=== PATIENT | female | born 1965 | race Caucasian/White ===

== ENCOUNTER 2022-08-08 06:28 | Day surgery (SDC) | payer SELFPAY ==
[2022-08-08 06:58] VITALS: BP 134/85; PULSE 78; RESP 16; TEMP 36.9; O2SAT 100; BMI 27.5
[2022-08-08] MEDS: Lactated Ringers 1,000 ML 15 ML IV (07:02)
--- NOTE | 2022-08-08 07:12 | H&P.OPEN ---
HPI - General HPI Narrative JESSEE ZACARIAS, is a 57 F who presents for as colonoscopy due to history of colon polyps as well as family history. Patient last colonoscopy was in November 2017 she did have tubular adenoma at that time. Patient's father has had colon/liver/pancreatic cancer?diagnosed initially in his 50s had surgery and then patient did have a recurrence in his 60s and had surgery again. Patient has bowel movements daily denies any blood. Patient denies any chronic abdominal pain/nausea/vomiting/reflux. [facility] Medical History (Updated 08/08/22 @ 07:[address] Violetta Winters MD) Cervical lesion Easy bruising Family history of colon cancer History of colon polyps Low iron Non-smoker Post-menopausal Wears partial dentures Home Medications calcium 600 mg capsule 600 mg PO DAILY 08/03/22 [History Last Taken Unknown] ferrous sulfate 325 mg (65 mg iron) tablet (iron) 325 mg PO DAILY 08/03/22 [History Last Taken Unknown] lactobacillus combination no.4 3 billion cell capsule (Probiotic) 3,000 mmu cells PO DAILY 08/03/22 [History Last Taken Unknown] omega 4-cao-vas-fish oil 1,000 mg (120 mg-180 mg) capsule (Fish Oil) 1 cap PO DAILY 08/03/22 [History Last Taken Unknown] Allergy/AdvReac Type Severity Reaction Status Date / Time No Known Allergies Allergy Verified 08/08/22 06:58 Family History (Updated 06/15/22 @ 08:19 by Anum Hernandez) Father Colon cancer Liver cancer Pancreatic cancer Grandfather Pancreatic cancer Surgical History (Updated 06/15/22 @ 08:18 by Anum Hernandez) History of colonoscopy Social History (Updated 06/15/22 @ 08:21 by Anum Hernandez) household members: spouse current occupational status: employed current occupation: [employer] Smoking Status: Never smoker substance use type: does not use caffeine: Yes Past Medical/Surgical History Planned Operation Planned Operative Procedure/s: CSCOPE OA Previous Hospitalizations/Surgeries HX Hospitalizations: No Any Problems With Anesthesia: No You/Your Family Experience Fever (Hyperthermia) With Anes: No Cholinesterase deficiency: No Cardiovascular Hx Hypertension: No Respiratory Hx Sleep Apnea: No Hx Respiratory Tract Infection/Cold (presently): No Do You Snore Loudly (louder than talking or can be heard): No Do You Often Feel Tired/ Fatigued/ Sleepy ing Daytime?: No Has Anyone Observed You Stop Breathing During Sleep?: No Result (for STOP score): Negative Smoking Status: Never smoker Neurological Does patient have nerve stimulator: No Reproduction : No Miscellaneous Recent Exposure to Contagious Disease: No Allergies No Known Allergies Allergy (Verified 08/08/22 06:58) Discharge Is Pt Admitted From a Fdc, or a Senior Living: No After D/C, Where Do you Plan to Go: Return Home Vital Signs Vital Signs Vital Signs: 08/08/22 06:58 08/08/22 06:58 Temperature 98.4 F Temperature Source Temporal Pulse Rate 78 Respiratory Rate 16 Respiratory Pattern Normal Blood Pressure 134/85 H Blood Pressure Mean 101 Blood Pressure Source Monitor Blood Pressure Position Sitting Blood Pressure Location Left Arm Pulse Ox 100 Oxygen Delivery Method Room Air Weight Weight: 165 lb 5.547 oz Body Mass Index (BMI) 27.5 Physical Exam Const alert, oriented x3 and no apparent distress HEENT normocephalic and head/scalp atraumatic Resp normal respiratory effort Cardio regular rate GI soft to palpation and non-tender; Negative for non-distended Palpation: Negative for guarding Extremity no clubbing, cyanosis or edema Neuro CN's II-XII intact bilaterally Psych mental status grossly normal Assessment & Plan Assessment/Plan (1) Family history of colon cancer: (2) History of colon polyps: Surgery Risks - Colonoscopy Risks Include but are not Limited To: Risks include but are not limited to: Bleeding, perforation requiring further surgery, inability to complete colonoscopy requiring barium enema.
[2022-08-08 07:55] VITALS: BP 106/72; BP 134/85; PULSE 72; RESP 14; TEMP 36.5; O2SAT 100
--- NOTE | 2022-08-08 07:58 | OP.COLON_ITS ---
Patient Name: Lucie Daniels Procedure Date: 08/08/2022 7:27 AM Date of : 1965 Age: 57 Procedure: Colonoscopy Indications: High risk colon cancer surveillance: Personal history of colonic polyps, Family history of colon cancer in a first-degree relative Providers: Violetta Winters MD Medicines: Monitored Anesthesia Care Patient Profile: This is a 57 year old female. Last Colonoscopy: November 2017. Complications: No immediate complications. Procedure: Pre-Anesthesia Assessment: - Prior to the procedure, a History and Physical was performed, and patient medications and allergies were reviewed. The patient's tolerance of previous anesthesia was also reviewed. The risks and benefits of the procedure and the sedation options and risks were discussed with the patient. All questions were answered, and informed consent was obtained. Prior Anticoagulants: The patient has taken no previous anticoagulant or antiplatelet agents. ASA Grade Assessment: Per anesthesia. After reviewing the risks and benefits, the patient was deemed in satisfactory condition to undergo the procedure. After I obtained informed consent, the scope was passed under direct vision. Throughout the procedure, the patient's blood pressure, pulse, and oxygen saturations were monitored continuously. The colonoscope was introduced through the anus and advanced to the terminal ileum. The colonoscopy was performed without difficulty. The patient tolerated the procedure well. The quality of the bowel preparation was good. Scope In: 7:33:21 AM Scope Withdrawal Time 0 hours 8 minutes 23 seconds Scope Out: 7:47:34 AM Total Procedure Duration Time 0 hours 14 minutes 13 seconds Findings: Hemorrhoids were found on perianal exam. Non-bleeding external and internal hemorrhoids were found. The hemorrhoids were Grade I (internal hemorrhoids that do not prolapse). Previous area of tattoo at about 18 cm- no evidence of polyps The entire examined colon appeared normal. Impression: - Hemorrhoids found on perianal exam. - Non-bleeding external and internal hemorrhoids. - The entire examined colon is normal. - No specimens collected. Recommendation: - Discharge patient to home. - Resume previous diet. - Continue present medications. - Repeat colonoscopy in 5 years for screening purposes. Procedure Code(s): --- Professional --- 78468, PT, Colonoscopy, flexible; diagnostic, including collection of specimen(s) by brushing or washing, when performed (separate procedure) Diagnosis Code(s): --- Professional --- Z86.010, Personal history of colonic polyps K64.0, First degree hemorrhoids Z80.0, Family history of malignant neoplasm of digestive organs CPT copyright 2017 [employer]. All rights reserved. The codes documented in this report are preliminary and upon occupational analyst review may be revised to meet current compliance requirements. MD Violetta Chiang MD 08/08/2022 7:58:41 AM This report has been signed electronically. Number of Addenda: 0 Note Initiated On: 08/08/2022 7:27 AM
--- NOTE | 2022-08-08 07:59 | OP.CCLET_ITS ---
08/08/2022 Natalie Roland Re : Colonoscopy procedure for Lucie Roland This procedure was performed on Monday, August 08, 2022. My impressions and recommendations are as follows: Impressions : - Hemorrhoids found on perianal exam. - Non-bleeding external and internal hemorrhoids. - The entire examined colon is normal. - No specimens collected. Recommendations : - Discharge patient to home. - Resume previous diet. - Continue present medications. - Repeat colonoscopy in 5 years for screening purposes. My findings are described in the full procedure note, which is enclosed. If I can be of further assistance, please feel free to contact me at Doctor phone number(s): , Work: . Sincerely, MD Violetta Chiang MD 08/08/2022 7:58:41 AM This report has been signed electronically.
[2022-08-08 08:00] VITALS: BP 109/73; BP 134/85; PULSE 72; RESP 16; O2SAT 99
[2022-08-08 08:05] VITALS: BP 110/82; BP 134/85; PULSE 75; RESP 16; O2SAT 99
[2022-08-08 08:10] VITALS: BP 114/70; BP 134/85; PULSE 72; RESP 16; TEMP 36.8; O2SAT 99
[2022-08-08 08:39] VITALS: BP 134/85
== END 2022-08-08 09:15 | disposition home or self-care (01) ==
LOC: EN 06:36 → AC 06:36
PROVIDERS: PCP Physician Assistant; Referring Provider Physician Assistant; Visit Provider Surgery
PROC: 0DJD8ZZ Inspection of Lower Intestinal Tract, Via Natural or Artificial Opening Endoscopic (ICD-10-PCS; CPT 45378; principal; 2022-08-08 07:25)
DX: Z12.11 Encounter for screening for malignant neoplasm of colon (principal); K64.0 First degree hemorrhoids; K64.4 Residual hemorrhoidal skin tags; Z80.0 Family history of malignant neoplasm of digestive organs; Z86.010 Personal history of colon polyps; Z78.0 Asymptomatic menopausal state
CPT/HCPCS: 45378; J7120

== ENCOUNTER → 2024-03-23 | Outpatient (CLI) | payer SELFPAY ==
--- NOTE | 2024-03-23 10:42 | ASPS_PTH ---
PATIENT: JESSEE ZACARIAS LOC: [facility] U#:[id number] AGE/SX: 58/F ROOM: RE03/23/[address]: Dr. Evan Bullard MD : 1965 BED: DIS: 03/23/2024 SPEC #: [id number] RECD: 03/23/24 13:19 STATUS: DAVE SHELBY #: [id number] RYLEY: 03/23/24 10:[address]: Evan Bullard DEPT: CYTOLOGY RECD BY: Flaca Shaw ENTERED: 03/23/24 13:33 SP TYPE: ASPIRATION OTHR DR: MARCELLA Kiser Tissues: Left breast, NOS Procedures: Special Stain Group II Cytology Other HEADER OPERATION: Fine needle aspiration left breast cyst PRE-OP DIAGNOSIS: Left breast cyst TISSUE SUBMITTED: Left breast cyst DIAGNOSIS CYTOLOGY Fine needle aspiration, left breast cyst (smears): Consistent with benign cyst contents. AM/mr 03/24/2024 CYTOLOGY STUDY Slides are reviewed. CYTOLOGY GROSS Received are 4 smears labeled with the patient's name and designated per the requisition as Left breast cyst. Submitted for staining. Mr 03/23/2024 TC:5 CPT: 11244
== END | disposition home or self-care (01) ==
PROVIDERS: PCP Physician Assistant; Referring Provider Surgery; Visit Provider Surgery
DX: N60.02 Solitary cyst of left breast (principal)
CPT/HCPCS: 88161; 88313

== ENCOUNTER → 2024-03-30 | Outpatient (CLI) | payer SELFPAY ==
--- NOTE | 2024-03-30 09:26 | BI_ITS ---
MAMMOGRAPHY - UNILATERAL DIAGNOSTIC: LEFT BREAST REASON FOR EXAM: Female, 58 years old. Follow-up to ultrasound-guided breast biopsy. PERTINENT HISTORY: Retroareolar nodule. TECHNIQUE: Digital unilateral breast petar (3D mammographic acquisition) in the CC and MLO projections. 2-D mediolateral oblique (MLO) and craniocaudad (CC) views of both breasts were obtained. CAD: Full Field Digital Mammography with Computer Added Detection was performed. COMPARISON: Comparison is made with prior outside examination dated March 11, 2024. FINDINGS: Breast Composition: There are scattered areas of fibroglandular density. A tissue clip marker is seen in the retroareolar region of the left breast. The clip is adjacent to a 4.1 mm nodule. No other significant abnormalities are identified. BI/DIAG MAMM W/CAD, UNILAT IMPRESSION: The biopsy clip is adjacent to a 4.1 mm nodule in the retroareolar region of the left breast. ASSESSMENT CATEGORY: BIRADS Category 2: Benign. A letter regarding these results will be sent to the patient by the facility within 30 days. Approximately 10% of breast cancers are not detected by mammography. A normal mammogram should not delay biopsy of a clinically suspicious abnormality. Electronically Signed: Guillaume Ledezma MD at 12:18 EDT ,
--- NOTE | 2024-03-30 09:26 | US_ITS ---
STUDY: ULTRASOUND BREAST - LEFT REASON FOR EXAM: Female, 58 years old. Status post aspiration and clip placement. TECHNIQUE: Axial and longitudinal images of the LEFT breast were performed with a high resolution ultrasound transducer. # OF IMAGES: 22 COMPARISON: Comparison is made with prior mammogram done earlier today. FINDINGS: LEFT Breast: There is a 7 mm x 7 mm x 5 mm hypoechoic slightly irregular nodular density at the 2:00 position breast at 2 cm from the nipple. A tissue clip marker is seen adjacent to the nodule. Blood flow is seen along the periphery of the nodule. Mild ductal dilatation. US/Breast Limited Unilateral IMPRESSION: 7 mm x 7 mm x 5 mm hypoechoic slightly irregular nodule at the 2:00 position of the breast at 2 cm from the nipple. A tissue clip marker is seen adjacent to the nodule. ASSESSMENT CATEGORY: BIRADS Category 0: Incomplete. Need additional imaging evaluation. A letter regarding these results will be sent to the patient by the facility within 30 days. Electronically Signed: Guillaume Ledezma MD at 7:39 EDT ,
== END | disposition home or self-care (01) ==
PROVIDERS: PCP Physician Assistant; Referring Provider Surgery; Visit Provider Surgery
DX: R92.8 Other abnormal and inconclusive findings on diagnostic imaging of breast (principal)
CPT/HCPCS: 76642; 77061; 77065; G0279

== ENCOUNTER 2024-04-01 07:44 | Day surgery (SDC) | payer SELFPAY ==
[2024-04-01] VITALS (11 sets, daily range): BP systolic 113–133; BP diastolic 67–76; PULSE 71–82; RESP 16–18; TEMP 36.2–36.9; O2SAT 94–100; BMI 26.7
[2024-04-01] MEDS: Lactated Ringers 1,000 ML 15 ML IV (08:17)
--- NOTE | 2024-04-01 08:49 | PCM.HP.BLA ---
History and Physical Date of Admission: 04/01/24 Date of Service: 03/23/24 MR#: [id number] Acct: [id number] Name: JESSEE ZACARIAS Rep #: [id number] : 1965 Provider: Dr. Evan Bullard MD Age/Sex: 58/F Location: [facility] Status: Signed Intake Vital Signs 08/08/2206:58 03/23/2410:10 Height 5 ft 5 in 5 ft 5 in Weight: 164 lb BMI 27.3 BP 137/86 H Blood Pressure Location Rt brachial Position Sitting Respiration 17 Pulse 79 Pulse Source Monitor Pulse Oximetry (%) 98 Oxygen Delivery Method room air Intake Visit Reasons: BIRADS 4 Chief Complaint: birads 4 Is patient in pain?: No Allergies No Known Allergies Allergy (Verified 03/23/24 10:12) Medications ?Medication ?Instructions ?Recorded ?Confirmed ?Type calcium 600 mg capsule 600 mg PO DAILY 08/03/22 03/23/24 History ferrous sulfate 325 mg (65 mg 325 mg PO DAILY 08/03/22 03/23/24 History iron) tablet (iron) lactobacillus combination no.4 3 3,000 mmu cells PO DAILY 08/03/22 03/23/24 History billion cell capsule (Probiotic) magnesium 200 mg tablet 200 mg PO DAILY 03/23/24 03/23/24 History medium chain triglycerides 5.84 kcal PO 03/23/24 03/23/24 History kcal/gram oral powder PFSH Medical History (Updated 03/23/24 @ 15:[address] Evan Bullard MD) Wears partial dentures Post-menopausal Low iron Easy bruising Non-smoker Cervical lesion History of colon polyps Family history of colon cancer Surgical History History of colonoscopy Family History (Updated 03/23/24 @ 10:10 by Linda Miranda) Father Colon cancer Liver cancer Pancreatic cancer Diabetes HypertensionGrandfather Pancreatic cancer Social History (Updated 03/23/24 @ 10:10 by Linda Miranda) household members: spouse current occupational status: employed current occupation: [employer] Smoking Status: Never smoker alcohol intake: current alcohol intake frequency: holidays/special occasions only substance use type: does not use caffeine: Yes HPI HPI HPI: Patient is a 58-year-old female who presents for recent suspicious result from routine screening mammogram (and subsequent ultrasound) of the left breast. They are referred from . [facility]. Based on mammographic imaging criteria this was given a BI-RADS 4. Patient has no prior history of breast pathology. She has no history of prior breast biopsy. She underwent menarche at the age of 14-15. She has had 4 pregnancies and 4 live births. Breast-feeding was used. Patient has no first-degree relatives with breast cancer. There is no tenderness with the present finding. There is no nipple discharge associated with this finding. The patient has no history of hormone replacement therapy. There is a history of trauma potentially to the affected breast as patient recalls falling off a ladder approximately 2 months ago. However, given the remoteness of this injury she is unable to recall the specific region that was impacted with this trauma. ROS General General: No weight change, appetite, fatigue, colon cancer, breast cancer or weakness HEENT HEENT: No difficulty swallowing, eye injury, eye surgery, swollen glands or hoarseness Endo Endocrine: No thyroid disease, diabetes mellitus, thyroid cancer, Hair loss, heat intolerance or cold intolerance Skin Skin: No rash or changing moles Breast Breast: Yes abnormal mammogram and abnormal US; No left breast lump, right breast lump, nipple discharge, breast pain or breast enlargement Musc Musculoskeletal: No back problems, arthritis, rheumatoid arthritis, gout or joint pain Cardio Cardiovascular: No murmur, pacemaker, heart disease, atrial fibrillation, high blood pressure, heart attack, heart stent, palpitations, shortness of breat with exertion or chest pain Psych Psychiatric: No depression, anxiety or hearing voices Resp Respiratory: No shortness of breath, No sleep apnea, No cough, No COPD, No asthma, No emphysema and No wheezing Gastro Gastrointestinal: No abdominal pain, No nausea or vomiting, No diarrhea, No constipation, No blood in stool, No acid reflux, Yes hemorrhoids, No ulcers, No gallbladder problem and No black,tarry stools Michael Hematologic: No blood thinners, No blood disorders, No bleeding, No anemia and No blood clots Neuro Neurologic: No system reviewed and no additional complaints, except as documented, No as per HPI, No abnormal gait, No abnormal hearing, No abnormal movements, No abnormal speech, No behavioral changes, No burning sensations, No confusion, No convulsions, No disequilibrium, No dizziness, No localized weakness, No frequent falls, No headache(s), No lack of coordination, No loss of vision, No memory loss, No numbness, No other visual disturbances, No radicular pain, No restless legs, No sensory deficit, No syncope, No tingling, No tremor(s), No weakness and No other Exam Const General: cooperative, comfortable and no acute distress Chest Other: Bilateral breasts are inspected and there is an apparent discrepancy in their size with the right slightly smaller than the left. There is also a slightly increased degree of nipple ptosis on the right when compared to the left. In the right breast superiorly, inferiorly, and laterally there is a degree of firmer lobular architecture to the breast with palpation. This area also corresponds to an area of increased tenderness with this exam. On the left, similarly, there is tenderness superiorly, inferiorly, and laterally. These areas of increased tenderness are somewhat wider on the left. Initially with ultrasound examination I was unable to identify the area of concern, but with reinspection adjacent to the areolar border identified the area of interest which measured 6 mm in diameter and was located just deep to the skin. Significantly, the supraclavicular fossae and the axillary spaces were both negative for any evidence of adenopathy upon palpation Office Procedures FNAB Procedure performed by: Evan Bullard Informed consent given: Yes Consent signed: Yes Location: Left breast Anesthesia: local Needle size: 22 G Aspiration content: minimal-none Tissue prep: slides Patient tolerated procedure: well Complications: No Procedure Time Out Time Out Informed consent given: Yes Consent signed: Yes Time out checklist: patient, procedure, site marked/identified, positioning of patient, supplies available, allergies confirmed and team agrees on procedure Time out staff in room: Yes Time out verified: Yes Time out date: 03/23/24 Time out time: 11:27 Assessment and Plan Assessment and Plan (1) Abnormal mammogram of left breast: Status: Acute Comment: Patient is a 58-year-old female who appears to be at average risk for breast cancer based on history but presents for newly diagnosed left breast lesion. An area of suspicion was described on screening mammogram, however, reflex ultrasound described a reportedly separate area at the 2 o'clock position and no further mention was given by radiology regarding patient's suspicious mammogram finding. During today's visit I was able to localize the suspicious ultrasound finding directly against the areolar border at the 2 o'clock position and so I offered patient possible FNA biopsy of this area. I described to her that postmenopausal breast cysts are unusual and any bloody drainage would indicate to us that we needed to proceed with a surgical biopsy. Further, I described to her that if the area failed to resolve is a breast cyst by 8 weeks post imaging and I would also have an indication to pursue a surgical biopsy. Lastly, I shared that any atypia noted on this FNA would indicate need for a surgical biopsy. Upon hearing this information patient provided her consent and the procedure was undertaken. Interestingly, the approach to this lesion was somewhat challenging given its superficial nature but I was able to confirm with ultrasound that I had passed a needle into it substance. Upon making this confirmation I was unable to aspirate any significant volume of fluid from its domain and thus concluded that the cyst content was either highly viscous or in fact solid. I thus offered to Mrs. Zacarias that we could maintain our plans for repeat imaging versus simply plan for surgical excisional breast biopsy. Patient shared that she would like to know this results sooner than later and opted for surgical excisional breast biopsy. In the meantime I discussed patient's case with radiology given the apparent discordance between the ultrasound and the index mammogram. Unfortunately radiology was unable to elaborate on the results of the mammography study further and instead recommended repeating both a diagnostic mammogram of the left breast as well as a ultrasound. This recommendation was passed on to the patient and I shared that I favor doing so before her operation so that if any additional intervention were required at the time of her operation it could be undertaken simultaneously. Patient expressed her understanding of this information and an order was placed for both imaging studies. Plan: ? Follow-up cytopathology for limited specimen obtained from patient's left breast FNA biopsy ? Follow-up diagnostic mammography and sonogram of the left breast ? Delay plans for operative surgical excisional biopsy until the above has been completed I have examined the patient and the H&P has been reviewed. There are no clinical changes since date of exam. Patient's ultrasound confirmed the lesion of interest and no additional lesions were identified. Will therefore plan for ultrasound-guided needle localization excisional biopsy of left breast mass. Proceed to the OR for biopsy.
--- NOTE | 2024-04-01 09:04 | PCM.PRE.AN2 ---
ASA Classification* ASA Classification ASA Classification: 2 Assessment & Plan Anesthesia* Anesthesia Assessment Anesthesia Assessment: Discussed sedation and/or anesthesia options, risks, benefits, and alternatives with patient/parents/legal guardian/POA. Questions invited. The patient/parents/legal guardian/POA seems to understand and agrees to proceed with anesthesia plan. Reviewed the physical assessment, medical history, allergy history and patient home medications list prior to surgery/procedure/anesthetic and documented any changes. Performed airway and anesthesia risk assessments. Anesthesia Type Anesthesia Type: General (LMA with backup GETA) History Source History Obtained from:: Patient and Chart Pre-Assessment Diagnosis/Proposed Procedure Planned Operative Procedure(s): LEFT EXCISIONAL BREAST BIOSPY Anesthesia History Anesthesia History - translator and interpreter: Anesthesia History - translator and interpreter Hx Hospitalization No 03/25/24 09:59 Any Problems With Anesthesia No 03/25/24 09:59 Cholinesterase deficiency No 03/25/24 09:59 You/Your Family Experience No 03/25/24 09:59 fever (hyperthermia) with Relationship Recent Exposure to Contagious No 04/01/24 08:12 Disease Does patient have nerve No 03/25/24 09:59 stimulator Patient instructed to have device shut off --Does patient have Pacemaker No 04/01/24 08:12 or ICD? When Was Last Pacemaker Check QUESTION #4 FULL TEXT: You/Your Family Experience fever (hyperthermia) with Anesthesia Any additional information?: No Last Oral Intake Last Oral intake: Last Oral Intake NPO since 21:00 04/01/24 08:12 Meds taken in AM with sips of No 04/01/24 08:12 water? Meds patient instructed to take am of surgery Any additional information?: No PONV PONV - translator and interpreter: PONV - translator and interpreter Female Yes 03/25/24 09:59 HX of Motion Sickness No 03/25/24 09:59 HX of N/V After Surgery No 03/25/24 09:59 Non-Smoker Yes 03/25/24 09:59 Duration of Surgery greater Yes 03/25/24 09:59 than 60 minutes Number of Risk Factors 3 03/25/24 09:59 PONV Score Moderate Risk 03/25/24 09:59 Any additional information?: No Height & Weight Height & Weight: Anesthesia: Height & Weight Height 5 ft 5 in 04/01/24 08:12 Weight: 73 kg 04/01/24 08:12 Body Mass Index (BMI) 26.7 04/01/24 08:12 Respiratory Assessment Respiratory Assessment - translator and interpreter: Respiratory Tract Infection Hx - translator and interpreter Hx Respiratory Tract Infection No 03/25/24 09:59 Any additional information?: No STOP Sleep Apnea STOP Sleep Apnea - translator and interpreter: STOP Sleep Apnea - translator and interpreter Hx Hypertension No 03/25/24 09:59 Hx Sleep Apnea No 03/25/24 09:59 CPAP BIPAP Do you snore loudly (louder No 03/25/24 09:59 than talking or can be heard Do you often feel tired/ No 03/25/24 09:59 fatigued/ sleepy during daytime? Has anyone observed you stop No 03/25/24 09:59 breathing during sleep? STOP Results Negative 03/25/24 09:59 QUESTION #5 FULL TEXT : Do you snore loudly (louder than talking or can be heard through closed doors)? 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 Specify any problems Hx of Preganancy in last 3 N/A 03/25/24 09:59 Months Nurse Filling Out Transfusion NBUCHER 03/25/24 09:59 & Questions: Date: 03/25/24 03/25/24 09:59 Time: 10:00 03/25/24 09:59 Patient unable to answer at this time (ie. confused, unrespo Any additional information?: No /Reproduction History /Reproductive History - translator and interpreter: /Reproductive Hx- translator and interpreter Hx Now Gestational Age (in weeks): EDC: Hx Hx Para Hx Section SAB No 03/25/24 09:59 Any additional information?: No Active Medications Active Medications: Current Medications Generic Name Dose Route Start Last Admin Trade Name Marlene PRN Reason Stop Dose Admin Cefazolin Sodium 2 gm/ Sodium 110 mls @ 150 mls/hr 04/01/24 09:20 Chloride IV 04/01/24 10:03 PREOP ONE Lactated Ringer's 1,000 mls @ 15 mls/hr 04/01/24 08:00 04/01/24 08:17 IV 15 mls/hr .Q48H RICKIE Administration Anesthesia Focused Assessment* Temperature: 98.3 F Pulse Rate: 77 Blood Pressure: 133/67 Respiratory Rate: 16 Pulse Ox: 100 Oxygen Delivery Method: Room Air Airway Assessment Mouth opens: >3 cm Mallampati Score: III Teeth Condition: Partial (Upper) Neck Range of motion (ROM): Full ROM Focused Labs Anesthesia Preop lab: CBC CHEMISTRY COAG Review of Systems (Anesthesia) ROS Narrative System reviewed and no additional complaints, except as documented. Physical Exam Const alert, oriented x3 and average body habitus HEENT dentition normal Neck full ROM Resp normal respiratory effort, normal air movement and clear to auscultation bilaterally GI GI Narrative: NO GERD Back/Spine normal ROM and thoraco-lumbar ROM normal Extremity full ROM Neuro oriented x3 and moves all extremities PFSH Medical History Leg cramps Wears partial dentures Post-menopausal Low iron Easy bruising Non-smoker Cervical lesion History of colon polyps Family history of colon cancer Home Medications ?Medication ?Instructions ?Recorded ?Last Taken ?Type calcium 600 mg capsule 600 mg PO DAILY 08/03/22 Unknown History ferrous sulfate 325 mg (65 mg 325 mg PO DAILY 08/03/22 Unknown History iron) tablet (iron) lactobacillus combination no.4 3 3,000 mmu cells PO DAILY 08/03/22 Unknown History billion cell capsule (Probiotic) magnesium 200 mg tablet 200 mg PO DAILY 03/23/24 Unknown History medium chain triglycerides 5.84 5.84 kcal PO DAILY 03/23/24 Unknown History kcal/gram oral powder Allergy/AdvReac Type Severity Reaction Status Date / Time No Known Allergies Allergy Verified 04/01/24 08:10 Family History Father Colon cancer Liver cancer Pancreatic cancer Diabetes Hypertension Grandfather Pancreatic cancer Surgical History History of wisdom tooth extraction History of colonoscopy Social History household members: spouse current occupational status: employed current occupation: [employer] Smoking Status: Never smoker alcohol intake: current alcohol intake frequency: holidays/special occasions only substance use type: does not use caffeine: Yes Prior Cardiac Testing/Procedures Prior Cardiac Testing/Procedures: Echocardiogram
[2024-04-01] MEDS: Cefazolin 2 GM in 0.9% Normal Saline (100mL Bag) 100 ML IV (09:17)
--- NOTE | 2024-04-01 10:17 | BRBX_PTH ---
PATIENT: JESSEE ZACARIAS LOC: EN U#:[id number] AGE/SX: 58/F ROOM: RE04/01/[address]: Dr. Evan Bullard MD : 1965 BED: DIS: 04/01/2024 SPEC #: [id number] RECD: 04/01/24 10:30 STATUS: DAVE SHELBY #: [id number] RYLEY: 04/01/24 10:[address]: Evan Bullard DEPT: SURGICAL PATHOLOGY RECD BY: Flaca Shaw ENTERED: 04/01/24 11:04 SP TYPE: BREAST BX OTHR DR: MARCELLA Kiser Tissues: Left breast, NOS Procedures: Surgery Specimen Level IV HEADER OPERATION: Excision, breast mass PRE-OP DIAGNOSIS: Abnormal mammogram of left breast TISSUE SUBMITTED: Left breast mass- short stitch superior, long stitch lateral MICROSCOPIC DIAGNOSIS Left breast mass, lumpectomy: Fat necrosis fibrosis and changes of previous biopsy/surgical procedure. Fibrocystic change with associated microcalcification. Intraductal hyperplasia without atypia. No evidence of malignancy. See comment. /mr 04/03/2024 COMMENT The majority of the changes may be secondary to the cyst rupture and associated with reactive and reparative change. Clinical correlation is suggested. MICROSCOPIC DESCRIPTION Slides are reviewed. GROSS DESCRIPTION Received in fixative is one container labeled with the patient's name and designated Left breast mass. The specimen consists of an oriented fragment of shepherd-yellow fatty tissue measuring 3.5 x 2.2 x 1.5cm and weighing 5.9gm. The specimen contains a metallic wire. The specimen is differentially inked. The specimen is inked as follows: anterior - yellow, posterior - black, superior - blue, inferior - green, medial - red and lateral - orange. The specimen is serially sectioned along its narrow access. No mass lesions are identified grossly. The specimen is totally submitted in seven cassettes after additional fixation. / 04/01/2024 TC:5 [facility]:[id number]
--- NOTE | 2024-04-01 10:20 | BI_ITS ---
SURGICAL BREAST SPECIMEN RADIOGRAPH CLINICAL: Document presence of tissue clip marker in biopsy specimen. FINDINGS: Specimen shows presence of tissue clip marker. Electronically Signed: Guillaume Ledezma MD at 12:18 EDT , BI/Breast Biopsy Specimen IMPRESSION: undefined
[2024-04-01] MEDS: Bupivacaine Mpf 0.5% 30 ML VIAL (10:33)
--- NOTE | 2024-04-01 10:37 | OP.PCM_ITS ---
Report of Operation Date of Procedure: 04/01/24 Pre-Operative Diagnosis: Left breast cyst at the 3 o'clock position adjacent to the areola Post-Operative Diagnosis: Same Surgery/Procedure Performed:: 1. Ultrasound-guided placement of wire to localize left breast cyst 2. Wire localization for excisional left breast biopsy Description of Surgical Findings:: ? Cystic lesion adjacent wire ? X-ray confirming biopsy marking clip Surgeon: Evan Bullard automatic corn grinder operator: Juliane Whitaker Type of Anesthesia: MAC/Supplemental/Local Anesthesiologist: August Braun Estimated Blood Loss (mL): 5 Description of Procedure: After appropriate identification in the preoperative holding area, the patient was brought to the operating room where her preoperative antibiotics were completed. She was positioned supine on the operating room table with her arms out and underwent induction with anesthesia. An LMA airway was placed. Patient's operative site was cleansed with Betadine and evaluated with ultrasound. Under ultrasound guidance, a Kopans wire was advanced to location o f the patient's marking clip. After deploying the wire, it was clipped short and the operative site was then prepped and draped in usual sterile fashion. Formal timeout was conducted to confirm both patient and procedure. Local anesthetic was instilled in the appointed location for the partial circumareolar incision and an approximately 3 cm curvilinear incision was made over area of interest. This was deepened with the use of electrocautery through Yanique's fascia. Then the mass was dissected free of the surrounding breast tissue with a combination of sharp dissection and electrocautery. The mass was then completely excised from the cavity and orientation maintained until we were able to place orientation marking stitches designating short superior long lateral with a 2-0 silk. The surgical cavity was inspected for hemostasis and s this was found to be intact. The cavity was irrigated and all loose breast tissue was removed from the cavity. The base of the cavity was marked with 3 small vascular titanium clips. The cavity was then closed at a deep dermal level with a running 3-0 Vicryl. The skin was closed in a subcuticular fashion with 4-0 Monocryl. Dermabond was applied as a dressing. Complications None Admit VTE Documentation VTE Mechan Device Prophylaxis: SCD's
--- NOTE | 2024-04-01 10:38 | EX.PCM.DISCH ---
Discharge Instructions Diet Discharge Diet: No restrictions Activity Discharge Activity: May Drive (No driving while using narcotic pain medication) May shower in (days): 1 Lifting Restrictions: Limit lifting with left upper extremity to no more than 5 pounds Dressing / Incision Call your doctor if your incision/area has: Continuous Slow Oozing, Sudden Increased Bleeding, Increased Pain/ Swelling, Increased Redness, Foul Smelling Discharge and Swelling at the incision site Call your doctor if you observe: Fever of 101 or Higher Suture Line Care: Avoid Pulling/Pushing Remove Dressing in: 1 day Cleanse incision/area with: Soap & Water Additional Dressing/Incision Instructions:: Dermabond should dissolve within 7 to 10 days with regular showering Follow Up Care Please Follow Up With: Evan Bullard MD When: 7 to 14 days postop Test Results: Test results from this visit will be discussed in further detail at your follow-up appointment, if applicable. Discharge Plan Admission Primary Reason for Your Visit: Excisional breast biopsy Attending Provider: Evan Bullard Primary Care Provider: Natalie Roland Instructions Print Language: Chadian Discharge Orders/Prescriptions Prescriptions: Continued magnesium 200 mg tablet 200 mg PO DAILY medium chain triglycerides 5.84 kcal/gram powder 5.84 kcal PO DAILY calcium 600 mg Capsule 600 mg PO DAILY ferrous sulfate [iron] 325 mg (65 mg iron) Tablet 325 mg PO DAILY Probiotic 3 billion cell Capsule 3,000 mmu cells PO DAILY Rx Instructions: administer with a meal Referrals / Follow Up: Natalie Roland PA [Primary Care Provider] - Disposition Disposition (needs filled in before D/C Order can be placed): Home, Self Care
--- NOTE | 2024-04-01 10:53 | PCM.POST.ANE ---
Anesthesia: Postop Eval I Current Vital Signs Temperature: 97.1 F Pulse Rate: 80 Blood Pressure: 117/74 Respiratory Rate: 18 Pulse Ox: 95 Oxygen Delivery Method: Room Air Assessment Airway patent: Yes Spontaneous unlabored respirations: Yes Mental status: Awake nausea: No Vomiting: No Anesthesia Complication: No Fluid Hydration Crystalloid volume administer (ml): 1,000 Total IV fluid infused: 1,000 Progress Note Anesthesia document: Postop Eval 1 completed: Yes
--- NOTE | 2024-04-01 12:14 | POSTOPAN2_ITS ---
Anesthesia Postop Eval I Sum Postop Eval Completion status Anesthesia document: Postop Eval 1 completed: Yes Anesthesia Postop Eval I Summary Anesthesia Postop Eval I Summary: Anesthesia Postop Eval I: Assessment Summary Airway patent Yes 04/01/24 10:54 [email or web address] Spontaneous unlabored Yes 04/01/24 10:54 MARKING [email or web address] respirations Mental status Awake 04/01/24 10:54 [email or web address] [email or web address] nausea No 04/01/24 10:54 MARKING [email or web address] Vomiting No 04/01/24 10:54 MARKING [email or web address] Anesthesia Postop Eval I: Fluid Summary Crystalloid volume administer 1,000 04/01/24 10:54 MARKING [email or web address] (ml) Colloids volume administered ( ml) Blood Product volume administered (ml) Total IV fluid infused 1,000 04/01/24 10:54 MARKING [email or web address] Anesthesia Postop Eval I: Summary Notes Anesthesia Complication No 04/01/24 10:54 [email or web address] Anesthesia Complication Comment: Post-operative progress note Anesthesia: Postop Eval II Evaluation Mental status: Awake Pain Level: 0 nausea: No Vomiting: No Complications Anesthesia Complication: No
--- NOTE | 2024-04-01 12:14 | PCM.POSTANE2 ---
Anesthesia Postop Eval I Sum Postop Eval Completion status Anesthesia document: Postop Eval 1 completed: Yes Anesthesia Postop Eval I Summary Anesthesia Postop Eval I Summary: Anesthesia Postop Eval I: Assessment Summary Airway patent Yes 04/01/24 10:54 [email or web address] Spontaneous unlabored Yes 04/01/24 10:54 [email or web address] respirations Mental status Awake 04/01/24 10:54 [email or web address] nausea No 04/01/24 10:54 [email or web address] Vomiting No 04/01/24 10:54 [email or web address] Anesthesia Postop Eval I: Fluid Summary Crystalloid volume administer 1,000 04/01/24 10:54 [email or web address] (ml) Colloids volume administered ( ml) Blood Product volume administered (ml) Total IV fluid infused 1,000 04/01/24 10:54 [email or web address] Anesthesia Postop Eval I: Summary Notes Anesthesia Complication No 04/01/24 10:54 [email or web address] Anesthesia Complication Comment: Post-operative progress note Anesthesia: Postop Eval II Evaluation Mental status: Awake Pain Level: 0 nausea: No Vomiting: No Complications Anesthesia Complication: No
== END 2024-04-01 12:08 | disposition home or self-care (01) ==
LOC: EN 07:45 → AC 07:45
PROVIDERS: PCP Physician Assistant; Referring Provider Surgery; Visit Provider Surgery
PROC: (CPT 19083; principal; 2024-04-01 09:05)
DX: N62 Hypertrophy of breast (principal); Z78.0 Asymptomatic menopausal state; N64.1 Fat necrosis of breast
CPT/HCPCS: 19125; 19285; 00400; 76098; 88305; A4648; J7120; J2405